=== PATIENT | female | born 1980 | race Two or more races ===

== ENCOUNTER → 2016-09-05 | Outpatient (CLI) | payer BC ==
--- NOTE | 2016-09-05 16:44 | DI ---
US BRST U/L OR B/L,09/05/2016 2:06 PM: Clinical History: Palpable right breast mass. Previous Exam: None at this facility. Findings: Physical examination reveals a firm, but freely mobile mass within the right lateral breast. Sonographic evaluation of the palpable area reveals a small reniform hypoechoic mass most consistent with a small lymph node. This measures 6 mm in long axis. There is no fluid collection. The underlying breast implant is within normal limits. Impression: No mammographic evidence of malignancy. BIRADS: 2: Benign findings Recommendations: Annual screening beginning at age 40 Note: Breast examination has been discussed and encouraged, and the patient informed to return if the re is any new palpable abnormality in the interval between screening. Overall imaging assessment: Benign findings.
== END ==
LOC: US 14:00
PROVIDERS: ATTEND Obstetrics & Gynecology
DX: N63 Unspecified lump in breast (principal); Z96.89 Presence of other specified functional implants
CPT/HCPCS: 76641

== ENCOUNTER → 2017-01-31 | Outpatient (CLI) | payer BC ==
[2017-01-31 16:33] LABS: BASOPHILS # (AUTO) 0.05 10*3/UL; BASOPHILS % (AUTO) 0.4 % (0-1); EOSINOPHILS # (AUTO) 0.09 10*3/UL; EOSINOPHILS % (AUTO) 0.6 % (0-8); HEMATOCRIT 38.5 % (37.0-47.0); HEMOGLOBIN 13.3 g/dL (12.0-16.0); MEAN CORPUSCULAR HGB CONC 34.5 g/dL (33-37); MEAN CORPUSCULAR VOLUME 86.7 FL (81-99); MEAN PLATELET VOLUME 10.8 FL (7.4-12.2); MONOCYTES % (AUTO) 7.1 % (5-15); NEUTROPHILS # (AUTO) 11.27 10*3/UL; NEUTROPHILS % (AUTO) 80.1 % (50-80); RED BLOOD COUNT 4.44 10^6/uL (4.20-5.40)
[2017-01-31 16:34] LABS: PLATELET MORPHOLOGY COMMENT NORMAL MORPHOLOGY (NORM); RBC MORPHOLOGY COMMENT NORMAL MORPHOLOGY (NORM); WBC MORPHOLOGY COMMENT NORMAL MORPHOLOGY (NORM)
[2017-01-31 16:54] LABS: HIV ANTIBODY NEGATIVE (N); HIV-1 P24 ANTIGEN NEGATIVE (N)
== END ==
LOC: MOB LAB 13:56
PROVIDERS: ATTEND Obstetrics & Gynecology
DX: Z36 Encounter for antenatal screening of mother (principal); Z3A.10 10 weeks gestation of pregnancy
CPT/HCPCS: 36415; 80081; 86900; 86901; 87077; 87088; 87185; 87205

== ENCOUNTER 2017-08-13 05:05 | Inpatient (IN) ==
[~2017-08-13 05:05] MED LIST: CITRIC ACID/SODIUM CITRATE 30 ML CUP PO ONE; CefOXitin Inj 2 GM in Sodium Chloride 0.9% 100 ML IV ONE; Clindamycin 900mg (Premix) 900 MG/50 ML BAG IV SCH; Famotidine Inj 20 MG in Normal Saline Flush 10 ML IVP ONE; LIDOCAINE HCL 2 % 10 ML JELLY URO-JECT TOPICAL PRN; LIDOCAINE W/ SODIUM BICARB 0.5 ML SYR SUBD PRN; Lactated Ringers 1,000 ML PRIMARY IV ONE; Lactated Ringers 1,000 ML PRIMARY IV SCH; Metoclopramide Inj 10 MG/2 ML VIAL IV ONE; NORMAL SALINE 10 ML SYRINGE FLUSH IVP PRN; Oxytocin 20 Units + LR 20 UNIT/1,000 ML BAG IV SCH
[2017-08-13 06:31] LABS: Hematocrit [HCT] 38.6 % (37.0-47.0); Hemoglobin [HGB] 13.1 g/dL (12.0-16.0); MEAN CORPUSCULAR HGB CONC 33.9 g/dL (33-37); MEAN CORPUSCULAR VOLUME 91.5 FL (81-99); MEAN PLATELET VOLUME 11.3 FL (7.4-12.2); RED BLOOD COUNT 4.22 10^6/uL (4.20-5.40)
[2017-08-13] MEDS ORDERED: Aztreonam Inj 2 GM in Sodium Chloride 0.9% 100 ML IV ONE (06:56)
[2017-08-13] MEDS ORDERED: Sodium Chloride 0.9% 0 ML ONE (07:08)
[2017-08-13] MEDS ORDERED: MORPHINE SULFATE/PF 10 MG/10 ML AMPULE ONE (07:13)
[2017-08-13] MEDS ORDERED: ePHEDrine Inj 50 MG/ML AMP ONE (07:15)
[2017-08-13] MEDS ORDERED: MORPHINE SULFATE/PF 10 MG/10 ML AMPULE EPIDURAL ONE (07:15)
[2017-08-13] MEDS ORDERED: OXYTOCIN 10 UNIT/1 ML ONE (07:16)
[2017-08-13] MEDS ORDERED: Lactated Ringers 1,000 ML PRIMARY IV ONE (07:54)
[2017-08-13] MEDS ORDERED: ONDANSETRON 4 MG/2 ML VIAL ONE (07:59)
--- NOTE | 2017-08-13 08:26 | CRNA.PROCE ---
Central Neuraxis Block Placemt - - Safety Measures: Time Out Taken, Site Verified - - Type of Block: Subarachnoid Reason for Block: Surgical Moniters Used During Block: EKG, SPO2, NIBP Positioning: Sitting Skin Prep Used: Betadine Draped: Yes Skin Infiltration - Enter Amount Used in Comment Field: 1% Xylocaine (mL): Yes ( Wheal L3-4) Introducer User: 23 Gauge Spinal Needle Used: 25 Shaheen 80 mm Local Anesthetic - Enter Amount Used in Comment Field: 0.75 % Bupivacaine with Dextrose (ml): Yes (12mg) Additive Used - Enter Amount Used in Comment Field: Preservative Free Morphine ( mg): Yes (0.15) Anesthesia Time - Other Weight: 74.616 kg Height: 5 ft 2 in Body Mass Index (BMI): 30.0
[2017-08-13] MEDS ORDERED: HYDROmorphone 2 MG/1 ML IVP PRN (08:27)
[2017-08-13] MEDS ORDERED: fentaNYL Inj 100 MCG/2 ML VIAL IVP PRN (08:27)
[2017-08-13] MEDS ORDERED: NORMAL SALINE 10 ML SYRINGE FLUSH IVP PRN (08:27)
[2017-08-13] MEDS ORDERED: Metoclopramide Inj 10 MG/2 ML VIAL IVP PRN (08:27)
--- NOTE | 2017-08-13 08:27 | CRNA.PROGR ---
Anesthesia Time - - Start date: 08/13/17 End date: 08/13/17 - Procedure/Recovery Time Anesthesia : Time In: 07:19 Anesthesia : Time Out: 08:15 Anesthesia : Total Time: 56 - Total Anesthesia Time Total Anesthesia Time (minutes): 56 - Other Weight: 74.616 kg Height: 5 ft 2 in Body Mass Index (BMI): 30.0 Physical Status: P2 Anesthesia Type: Spinal Block Obstetrics: C/S anesthesia only
--- NOTE | 2017-08-13 08:27 | OB.OP.NOTE ---
Operative Report Surgeon: Naomie Beam Carrier Hauler Pusher: Marco A Ba MD Anesthesia Type: Regional Anesthesia Provider: Chauncey Frank CRNA Surgery Date: 08/13/17 Preoperative Diagnosis: 38 Week Twin IUP with Breech Presentation Baby B Postoperative Diagnosis: Same Procedure: Primary LTCS with Incidental Myomectomy Estimated Blood Loss (mL): 1,200 Fluids: 2200 ml Complications: None Findings at Surgery: Viable twin female infants, A in cephalic lie with Apgars 9/9 and weight 6 lbs. 1 oz, B in footling breech presentation with Apgars of 8/9 and weight 5 lbs 9 oz. There was a 4-5 cm pedunculated fibroid off the left posterior aspect of the uterus and a 6 cm intramural fibroid in the right cornual portion of the uterus. Normal tubes and ovaries. Indications for the Procedure: 38 week Twin IUP with breech presentation baby B. Description of Procedure: See dictated operative report. Plan: Routine post op care.
[2017-08-13] MEDS ORDERED: Lactated Ringers 1,000 ML PRIMARY IV SCH (08:30)
[2017-08-13] MEDS ORDERED: D5-LR 1,000 ML PRIMARY IV SCH (08:55)
[2017-08-13] MEDS ORDERED: CALCIUM CARBONATE 500 MG (TUMS) CHEWABLE TABLET PO PRN (08:55)
[2017-08-13] MEDS ORDERED: Naloxone Inj 0.01 MG, Sodium Chloride 0.9% vial 1 ML IVP PRN ×2 (08:55)
[2017-08-13] MEDS ORDERED: Oxytocin 20 Units + LR 20 UNIT/1,000 ML BAG IV SCH (08:55)
[2017-08-13] MEDS ORDERED: Famotidine Inj 20 MG in Normal Saline Flush 10 ML IVP PRN (08:55)
[2017-08-13] MEDS ORDERED: LANOLIN HPA 40 GM TUBE TOPICAL PRN (08:55)
[2017-08-13] MEDS ORDERED: diphenhydrAMINE 50 MG/1 ML VIAL IV PRN (08:55)
[2017-08-13] MEDS ORDERED: DIPH,PERTUSS,TET(ADACEL) VAC/PF 0.5 ML (Tdap) IM ONE (08:55)
[2017-08-13] MEDS ORDERED: Nalbuphine Inj 20 MG/ML Ampule IVP PRN (08:55)
[2017-08-13] MEDS ORDERED: diphenhydrAMINE 25 MG CAPSULE PO PRN (08:55)
[2017-08-13] MEDS ORDERED: ONDANSETRON 4 MG/2 ML VIAL IVP PRN (08:55)
[2017-08-13] MEDS: NORMAL SALINE 10 ML SYRINGE FLUSH IVP PRN ×3 (10:37→23:28)
[2017-08-13] MEDS: KETOROLAC 15 MG/1 ML VIAL IVP PRN ×3 (10:37→23:27)
[2017-08-13] MEDS: oxyCODONE-ACETAMINOPHEN 5-325 TAB PO PRN ×2 (16:54→21:36)
[2017-08-13] MEDS: SIMETHICONE 80 MG TABLET PO PRN ×2 (17:41→21:36)
[2017-08-14] MEDS: SIMETHICONE 80 MG TABLET PO PRN ×2 (03:47→08:19)
[2017-08-14] MEDS: oxyCODONE-ACETAMINOPHEN 5-325 TAB PO PRN ×6 (03:48→23:59)
[2017-08-14 05:21] LABS: Hematocrit [HCT] 34.5 % (37.0-47.0); Hemoglobin [HGB] 11.6 g/dL (12.0-16.0); MEAN CORPUSCULAR HEMOGLOBIN 31.2 PG (27-31); MEAN CORPUSCULAR HGB CONC 33.6 g/dL (33-37); MEAN CORPUSCULAR VOLUME 92.7 FL (81-99); MEAN PLATELET VOLUME 11.4 FL (7.4-12.2); RED BLOOD COUNT 3.72 10^6/uL (4.20-5.40)
[2017-08-14] MEDS: KETOROLAC 15 MG/1 ML VIAL IVP PRN ×2 (06:35→10:22)
[2017-08-14] MEDS: NORMAL SALINE 10 ML SYRINGE FLUSH IVP PRN (06:42)
[2017-08-14] MEDS ORDERED: IBUPROFEN 800 MG TABLET PO PRN (08:18)
[2017-08-14] MEDS: Prenatal Multivitamin Tab 1 TAB TAB PO SCH (08:19)
[2017-08-14] MEDS: Senna/Docusate Tab 1 TAB TAB PO SCH ×2 (08:19→21:00)
--- NOTE | 2017-08-14 09:40 | OB.PROGRES ---
Subjective Post Op Day: 1 Pain Management: PO Schwab Catheter: No Flatus: No Diet: Regular [place] Feeding Method: Exculsively Ambulating: Yes Concerns / Additional Information: Nanci is doing well this morning. She is ambulating well, but is not yet passing gas. No complaints. Good pain control. Assesstment / Plan Assessment / Plan: POD 1, doing well. CCM.
--- NOTE | 2017-08-14 10:39 | CRNA.PROGR ---
Anesthesia Note - Progress Notes Anesthesia Progress Note: Ambulatory in room at this time. Spouse is present. She has no questions or concerns regarding her anesthetic course. Laboratory Results 08/14/17 Range/Units 04:45 WBC 14.79 H (4.8-10.8) 10^3/uL RBC 3.72 L (4.20-5.40) 10^6/uL Hgb 11.6 L (12.0-16.0) g/dL Hct 34.5 L (37.0-47.0) % MCV 92.7 (81-99) FL MCH 31.2 H (27-31) PG MCHC 33.6 (33-37) g/dL RDW Std Deviation 42.0 (39-50) fL RDW Coeff of Titus 13.0 (11.5-14.5) % Plt Count 153 (140-350) 10*3/uL MPV 11.4 (7.4-12.2) FL Vital Signs (24 hrs) Temp Pulse Pulse Pulse Resp BP Pulse Ox 08/14/17 08:58 98.3 F 70 66 17 122/78 93 08/14/17 06:44 68 69 08/14/17 04:47 98 08/14/17 01:00 98.2 F 67 16 115/77 97 08/13/17 20:05 60 08/13/17 20:00 97.9 F 60 16 123/79 97 08/13/17 17:48 99 08/13/17 17:23 98.0 F 59 L 18 137/84 99 08/13/17 13:50 97.8 F 56 L 18 118/74 100
[2017-08-15] MEDS: oxyCODONE-ACETAMINOPHEN 5-325 TAB PO PRN ×5 (04:54→20:28)
--- NOTE | 2017-08-15 07:54 | OB.PROGRES ---
Subjective Post Op Day: 2 Pain Management: PO Schwab Catheter: No Flatus: Yes Diet: Regular Feeding Method: Exculsively Ambulating: Yes Concerns / Additional Information: The patient has been ambulating and after ambulating for a little bit, the patient does feel better. The patient would be pleased to stay here until tomorrow. Her abdomen is still large secondary to her GI system she believes. She is doing better today than yesterday. The patient plans on taking a shower today and her dressing will be changed. Objective - General General Appearance: POSITIVE: No Acute Distress, Cooperative - Cardiovacular Cardiovascular Exam: POSITIVE: RRR Edema: No Pedal Edema Extremities: Negative Kimi's - Bilaterally - Respiratory Respiratory Exam: POSITIVE: Clear to Auscultation - Bilaterally - Abdomen Bowel Sounds: Hypoactive (Slightly distended abdomen and tympanic.) Abdominal Wound Assessment: Well Approximated - Fundus/Lochia/Perineum Uterus Consistency: Firm (U -0 and nontender) Assesstment / Plan Assessment / Plan: Assessment: Postoperative day #2 status post primary low transverse section for twins with baby A cephalic and baby B breech. The patient's H&H was good and the patient's vital signs been normal. The patient does have a postoperative ileus and ambulating does help. The patient did pass flatus yesterday but none yet today. Plan: The patient will be observed today. Ambulate at least 4-8 times today in the halls of labor and delivery. Percocet or oxycodone as needed Ibuprofen 3 times a day scheduled-nurses are giving the ibuprofen scheduled Colace twice a day Continue to observe closely Anticipate discharge tomorrow
[2017-08-15] MEDS: Senna/Docusate Tab 1 TAB TAB PO SCH ×2 (08:48→23:30)
[2017-08-15] MEDS: Prenatal Multivitamin Tab 1 TAB TAB PO SCH (08:48)
[2017-08-15] MEDS: IBUPROFEN 800 MG TABLET PO SCH ×2 (11:30→12:52)
--- NOTE | 2017-08-15 17:59 | PT.PROG ---
Progress Note Progress Note: S: pt reports she would like MHP and massage. felt better than yesterday , L side more sore than R side. O: MHP x 20 mins with IFC and micro massage for pain. A: pt demo improvemet in mobility today and decrease in pain. P: cont per POC.
[2017-08-16] MEDS: oxyCODONE-ACETAMINOPHEN 5-325 TAB PO PRN ×3 (00:05→08:53)
[2017-08-16 01:06] VITALS: BP 132/75; RESP 20; O2SAT 94
[2017-08-16] MEDS: IBUPROFEN 800 MG TABLET PO SCH (08:51)
[2017-08-16] MEDS: Senna/Docusate Tab 1 TAB TAB PO SCH (08:52)
[2017-08-16] MEDS: Prenatal Multivitamin Tab 1 TAB TAB PO SCH (08:52)
[2017-08-16 08:54] VITALS: TEMP 98.6
--- NOTE | 2017-08-16 09:29 | OB.PROGRES ---
Subjective Post Op Day: 3 Pain Management: PO Schwab Catheter: No Flatus: Yes Diet: Regular Feeding Method: Exculsively Ambulating: Yes Concerns / Additional Information: The patient is feeling much better today. She only got a couple hours of sleep intermittently secondary to the baby's but is doing well. She is passing flatus. She is breast-feeding. She is pumping. The patient would like to go home. Objective - General General Appearance: POSITIVE: No Acute Distress, Cooperative - Cardiovacular Cardiovascular Exam: POSITIVE: RRR Edema: +1 Pedal Edema (Trace to 1+ pitting edema bilaterally.) Extremities: Negative Kimi's - Bilaterally - Respiratory Respiratory Exam: POSITIVE: Clear to Auscultation - Bilaterally - Abdomen Bowel Sounds: Present (Abdomen is soft and gravid without guarding or rebound.) Abdominal Wound Assessment: [place] Dressing (The overlying dressing edges are not adhering well. This dressing will be replaced.) - Fundus/Lochia/Perineum Uterus Position: POSITIVE: At Umbilicus Assesstment / Plan Assessment / Plan: Assessment: Postoperative day #3 status post primary low transverse section for twins in cephalic/ breech. The patient is doing well. Positive flatus. Ambulating. Desiring to go home. Plan: Discharge home Please see discharge plan Patient should follow-up this next week for incision check with Dr. Akbar on Friday Her cautions given. Return to clinic or ER sooner for problems
--- NOTE | 2017-08-16 09:31 | DCSUMMARY ---
Hospitalization Summary Admit Date: 08/13/17 Discharge Date: 08/16/17 Primary Diagnosis:: twin intrauterine cephalic breech presentation Primary Surgery and Date: 08/13/2017. Primary low transverse section Delivery Type: Hospital Course: Patient recovered uneventfully over the postop course. / Postop Complications: Uncomplicated postoperative course Complications: Uncomplicated course Exam - Vitals Vital Signs: Vital Signs Temperature 98.6 F Temperature Source Oral Pulse Rate [Apical] 68 Pulse Rate [Pulse Oximeter] 69 Pulse Rate 80 Respiratory Rate 20 Blood Pressure [Left Arm] 132/75 Blood Pressure 145/95 Pulse Ox 94 Oxygen Flow Rate 1 Oxygen Delivery Method Room Air Height 5 ft 2 in Weight 150 lb 4 oz
--- NOTE | 2017-08-16 11:45 | OB.PROGRES ---
Assesstment / Plan Assessment / Plan: The patient had a question about her abdominal exam. The patient has some discomfort at her umbilicus but also above her umbilicus. On exam, the patient appears to have a diastases above her umbilicus but I could not palpate an adnexal hernia. At her umbilicus there was a very small umbilical hernia. The patient stated that she did not have any hernias that were noticed while she carried her twins. The patient most likely has a very small umbilical hernia and I gave the patient strict precautions and discussed incarcerated hernias and that she should go immediately to the emergency room if she gets acute pain at her umbilicus. I could not palpate a specific hernia above her umbilicus but we did discuss ventral hernias and the possibilities. I asked the patient to observe the area and to call her physician for any questions or go to the emergency room for acute pain. Otherwise at the one-week checkup and then the 6 week checkup the umbilical hernia and superior to the umbilicus would be examined. A referral to the general surgeon could be completed for the small umbilical hernia if it remains patent. The patient expressed understanding with that plan.
--- NOTE | 2017-08-18 11:25 | PTI REPORT ---
Thank you for the referral of Nanci Sanabria. She was seen on 08/14/17 for an inpatient evaluation secondary to low back and left hip pain. SUBJECTIVE: The patient is a 37-year-old female who is one day post delivery of twins via section. The patient presents with onset of left low back pain into the left glut and left lateral thigh region that she states has been worsening since delivery. The patient has been given an abdominal binder which she states helps some, but she is still having pain on the left side primarily with a little pain over on the right in the PSIS region. The patient has been up walking around which does help, but she does have some difficulties with transferring in and out of bed and to and from the bathroom due to her pain. The patient does have one previous delivery. PAST MEDICAL HISTORY: Past medical history can be found in the patient's medical record. OBJECTIVE FINDINGS: General observations: The patient is alert and oriented to setting upon PT arrival. The patient was in a side-lying position on her right side in bed and states that that is the most comfortable position due to the pain in her left hi region. Transfers: The patient required max assist with transfers due to pain and required increased time. Bed mobility: The patient did require assistance in order to get supine on her back with head of bed elevated. The patient was able to achieve a comfortable position here with the left hi slightly supported. ASSESSMENT: The patient has good rehab potential. Problem List: Pain in low back and left hip region Physical Therapy Goals: To be met by discharge from inpatient: Patient will report at least a 50% decrease in her low back and left hip pain in order to better perform transfers and movement. TREATMENT PLAN: Patient will be seen PRN while an inpatient for modalities and Kinesio tape for low back and left hip pain. INITIAL TREATMENT: Treatment today consisted of the initial evaluation. The patient was placed on a moist heat pack with interferential current around her left low back, PSIS region, and into the glut for pain modulation. Soft tissue mobilization was performed on the patient in a side-lying position along her left PSIS region and into the gluteal muscles and along the lateral left hip. The patient received application of Kinesio tape for lumbar support and stabilization along with space corrector for pain over the bilateral greater trochanteric region and PSIS region. The patient reported improvement in pain following therapy and she was instructed to continue to wear her abdominal brace over top of the taping. RJ
== END 2017-08-16 12:25 | disposition home or self-care (01) | DRG 765 ==
LOC: OBOR 05:05 → OBIP 08:56
PROVIDERS: ADMIT Obstetrics & Gynecology; ATTEND Obstetrics & Gynecology